=== PATIENT | male | born 1980 | race Caucasian/White ===

== ENCOUNTER → 2021-01-05 | Outpatient (CLI) | payer OTHER | LOC: LAB 08:21 | PROVIDERS: ATTEND Nurse Anesthetist, Certified Registered | DX: Z01.812 Encounter for preprocedural laboratory examination (principal); K62.5 Hemorrhage of anus and rectum; Z20.822 Contact with and (suspected) exposure to COVID-19 | CPT/HCPCS: U0003 ==

== ENCOUNTER → 2021-01-10 | Day surgery (SDC) | payer OTHER ==
[~2021-01-10] MED LIST: IPRATRPIUM/ALBUTEROL 0.5/2.5MG 3 ML NEBU. NEB PRN; IV RINGERS SOLUTION,LACTATED 1,000 ML IV SCH; LIDOCAINE 2% PF 5 ML VIAL. ONE; MIDAZOLAM HCL PF 2 MG/2 ML VIAL. IV ONE; ONDANSETRON PF 4 MG/2 ML VIAL. IV PRN; PROPOFOL 10,000 MCG/ML (20ML) VIAL IV ONE
--- NOTE | 2021-01-10 11:23 | NUR ---
patient b/p 82/33 immediately post op, recheck 73/35. Adjusted blood pressure cuff bp remains 80s over 30s. Anesthesia at bedside. IV fluid running wide open. Patient sleepy but rousable.
[2021-01-10 11:45] VITALS: BP 130/73
--- NOTE | 2021-01-13 02:12 | PATHOLOGY ---
[facility] Accession Number: [id number] . 01 Material submitted: . colon - POLYP @75 . 01 Clinical history: . COLONOSCOPY AND POLYPECTOMY HEMTOCHEZIA . 02 Diagnosis: "Polyp at 74", biopsy: - Hyperplastic polyp. ([facility]; 01/12/2021) S 01/12/2021 1448 Local . 02 Electronically signed: . Aiyana Bautista MD, Pathologist NPI- [id number] . 01 Gross description: . The specimen is received in formalin, labeled "Hilario Long, polyp at 74". Received are two segments of pale mckeon tissue measuring 0.3 and 0.4 cm in maximum dimensions. The specimen is submitted entirely in cassette A1. ([facility]; 01/11/2021) QA/[facility] 01/11/2021 1030 Local . 02 Pathologist provided ICD-10: K63.5 . 02 CPT . 703077 Specimen Comment: A courtesy copy of this report has been sent to [phone] Specimen Comment: Report sent to Performed at: 01 [facility] [address], [place], [place] [id number] MD Chay Taylor MD Phone: [phone] Performed at: 02 [facility] [address] [place] [id number] MD Aiyana Bautista MD Phone: [phone]
== END | disposition home or self-care (01) ==
LOC: SURG 08:30
PROVIDERS: ATTEND Surgery
DX: K92.1 Melena (principal); K63.5 Polyp of colon; Z72.89 Other problems related to lifestyle; Z79.899 Other long term (current) drug therapy
CPT/HCPCS: 45380; 88305; J2001; J2704; J7120

== ENCOUNTER 2021-12-09 10:05 | Emergency (ER) | payer OTHER ==
[~2021-12-09] VITALS: Ht 188 cm; Wt 100.0 kg
[2021-12-09 10:15] VITALS: BP 130/56
--- NOTE | 2021-12-09 10:40 | PHYS DOC ---
General Adult EDM: Chief Complaint: SHOUDLER HPI: HPI: Patient is a 41-year-old male who presents to the emergency department for right shoulder pain that started 1 week ago. He reports he has no pain at rest but has pain with movement. He reports decreased extension of his arm due to pain. Patient denies any injuries or heavy lifting, decreased sensation in his extremity. Review of Systems: Review of Systems: Musculoskeletal: See HPI Integument: See HPI Neurologic: See HPI Allergies: Allergies: Allergies Coded Allergies Type Severity Reaction Last Updated Verified No Known Drug Allergies 01/10/21 No Physical Exam: PE: Constitutional: Well developed, well nourished, no acute distress, non-toxic appearance. [] HENT: Normocephalic, atraumatic, bilateral external ears normal, oropharynx moist, no oral exudates, nose normal. [] Eyes: PERRL, EOMI, conjunctiva normal, no discharge. [] Neck: Normal range of motion, no tenderness, supple, no stridor. [] Cardiovascular: Normal peripheral perfusion Lungs & Thorax: Normal work of breathing, no tachypnea Abdomen: Soft and flat Skin: Warm, dry, no erythema, no rash. [] Back: No tenderness normal range of motion Extremities: No tenderness, no cyanosis, no clubbing, ROM intact, no edema. [] right shoulder: pain with palpation of AC joint, no crepitis, neuro intact, no obvious deformity, decreased shoulder extension rom due to pain Neurologic: Alert and oriented X 3, normal motor function, normal sensory function, no focal deficits noted. [] Psychologic: Affect normal, judgement normal, mood normal. [] Current Patient Data: Vital Signs: Vital Signs Date Time Temp Pulse Resp B/P (MAP) Pulse Ox O2 Delivery O2 Flow Rate FiO2 12/09/21 10:15 80 16 130/56 (80) 100 Room Air EKG: EKG: [] Radiology/Procedures: Radiology/Procedures: []REASON: weight bearing for ac separation PROCEDURE: SHOULDER BILAT 2+V XR SHOULDER 2+ VIEWS BILAT-3 view study of both shoulders and additional AP view of both shoulders in one view with weights. CLINICAL INDICATIONS: Reason: weight bearing for ac joint separation / Spl. Instructions: / History: Shoulder pain. Findings: No AC joint separation is seen. 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 No acute fracture or dislocation or lytic process is seen. IMPRESSION: No acute radiographic abnormality is seen. Electronically signed by: Kyrie Jones MD (12/09/2021 11:28 AM) [id number] DICTATED AND SIGNED BY: KYRIE JONES MD DATE: 12/09/21 1121 CC: MIRANDA PUGH DO; UMM TAYLOR [employer]RIAGE AND FAMILY COUNSELOR ~ Heart Score: C/O Chest Pain: N/A Risk Factors: Risk Factors: DM, Current or recent (<one month) smoker, HTN, HLP, family history of CAD, obesity. Risk Scores: Score 0 - 3: 2.5% MACE over next 6 weeks - Discharge Home Score 4 - 6: 20.3% MACE over next 6 weeks - Admit for Clinical Observation Score 7 - 10: 72.7% MACE over next 6 weeks - Early Invasive Strategies Course & Med Decision Making: Course & Med Decision Making Pertinent Labs and Imaging studies reviewed. (See chart for details) Patient is seen in the emergency department for right shoulder pain. Imaging was performed with weightbearing to rule out AC joint separation he is tender along his AC joint and there was no acute findings. He is neurovascularly intact. Patient advised to apply heat take pain medication use muscle relaxers and follow-up with an orthopedic doctor. Patient will be discharged home with pain medication and a muscle relaxer. I discussed with patient all findings and diagnostic testing as well as the need to follow-up with PCP for further evaluation and treatment or return to the ER if any new or worsening symptoms. Strict return precautions were also discussed at length. Patient voiced understanding and agreement with the plan. Patient is hemodynamically stable at the time of disposition. Dragon Disclaimer: Dragelizabeth Disclaimer: This electronic medical record was generated, in whole or in part, using a voice recognition dictation system. Departure Departure: Impression: Primary Impression: Shoulder pain Qualified Codes: M25.511 - Pain in right shoulder Disposition: HOME / SELF CARE / HOMELESS Condition: GOOD Referrals: MIRANDA PUGH DO (PCP) ALEXX CHAVEZ II, MD Patient Instructions: Bursitis Additional Instructions: You are seen in the emergency department today for right shoulder pain. It does not appear that you have any acute fractures or dislocations or joint separations to your right shoulder. It is possible that you have a rotator cuff injury possible nerve impingement. Please take the pain medication that you are being prescribed for severe pain. This medication is hydrocodone and Tylen ol in combination tablet. This medication may cause sedation so do not take when you need to be alert, driving a vehicle or with alcohol. Can also take ibuprofen or naproxen for mild pain. Being discharged home with muscle relaxer. This medication may also cause sedation so do not take it in combination with your hydrocodone. Follow-up with your primary care provider on Friday regarding your ER visit. You will need to see an orthopedic doctor is attached to your discharge paperwork. Return to the emergency department if you develop truce, decreased sensation in your extremity. Scripts Cyclobenzaprine Hcl (CYCLOBENZAPRINE HCL) 5 Mg Tablet 1 TAB PO TID for muscle spasm for 7 Days, #21 TAB 0 Refills Prov: UMM TAYLOR APRN 12/09/21 Hydrocodone Bit/Acetaminophen (HYDROCODONE-APAP 5-325 ) 1 Each Tablet 1 TAB PO PRN Q6HRS PRN for PAIN for 2 Days, #8 TAB 0 Refills Prov: UMM TAYLOR APRN 12/09/21 UMM TAYLOR APRN Dec 09, 2021 10:40
--- NOTE | 2021-12-09 11:30 | RAD ---
XR SHOULDER 2+ VIEWS BILAT-3 view study of both shoulders and additional AP view of both shoulders in one view with weights. CLINICAL INDICATIONS: Reason: weight bearing for ac joint separation / Spl. Instructions: / History: Shoulder pain. Findings: No AC joint separation is seen. There is mild primary degenerative osteoarthritis and spurr ing of the left AC joint. No acute fracture or dislocation or lytic process is seen. IMPRESSION: No acute radiographic abnormality is seen. Electronically signed by: Jeremy Jones MD (12/09/2021 11:28 AM) [id number]
[2021-12-09] MEDS ORDERED: CYCL5TAB PO (11:41)
[2021-12-09] MEDS ORDERED: HYDR-2155 PO (11:41)
== END 2021-12-09 11:50 | disposition home or self-care (01) ==
LOC: ER 10:05
DX: M25.511 Pain in right shoulder (principal)
CPT/HCPCS: 99283; 73030-50